=== PATIENT | male | born 1990 | race Caucasian/White ===

== ENCOUNTER 2023-08-11 12:51 | Day surgery (SDC) | payer OTHER ==
[2023-08-11] MEDS ORDERED: Sodium Chloride 0.9(Preservative Free) 10 ML IJ ONE (12:52)
[2023-08-11] MEDS ORDERED: LIDOCAINE HCL 1% 50 MG/5 ML VL PF IJ ONE (12:52)
[2023-08-11] MEDS ORDERED: Decadron 4 MG INJ IV ONE (12:52)
[2023-08-11] MEDS ORDERED: Lactated Ringers 1,000 ML IV ONE (14:05)
[2023-08-11] MEDS ORDERED: DIPRIVAN 200 MG/20 ML IV ONE ×2 (14:28→14:33)
--- NOTE | 2023-08-11 15:02 | XRAY ---
Indication: Right piriformis injection. Intraoperative fluoroscopy provided for 7 seconds. 2 digital spot image submitted for interpretation demonstrates posterior needle tip projecting over right piriformis. Small amount of contrast injected for needle tip placement. Correlate with intraoperative findings/report.
--- NOTE | 2023-08-11 15:08 | XRAY ---
7 seconds of fluoroscopy was used in surgery for a right piriformis injection.
--- NOTE | 2023-08-11 15:08 | XRAY ---
20 seconds of fluoroscopy was used in surgery for a right L4-S1 transforaminal SAMI.
--- NOTE | 2023-08-11 15:08 | XRAY ---
Indication: Right L4-S1 transforaminal SAMI. Intraoperative fluoroscopy provided for 20 seconds. 5 digital spot image submitted for interpretation demonstrates posterior needle tips projecting over expected right L4 and L5 nerve roots. Small amount of contrast injected for needle tip placement. Correlate with intraoperative findings/report.
== END 2023-08-11 15:05 | disposition home or self-care (01) ==
LOC: SDC-PAIN 12:51
PROVIDERS: ATTEND Psychiatry & Neurology Pain Medicine
DX: M54.16 Radiculopathy, lumbar region (principal); M79.18 Myalgia, other site
CPT/HCPCS: 20552; 64483; 64484; 72100; 72170; 77002; 77003; J1100; J2001; J2704; Q9966